=== PATIENT | female | born 2005 | race Two or more races ===

== ENCOUNTER 2024-11-21 09:29 | Emergency (ER) | payer MEDICAID ==
[~2024-11-21] VITALS: Ht 172.7 cm; Wt 172.2 kg
[2024-11-21] MEDS ORDERED: PANT40TA2 PO (09:50)
[2024-11-21] MEDS ORDERED: PRED20TA2 PO (09:50)
[2024-11-21] MEDS ORDERED: PRED10TA PO (09:50)
--- NOTE | 2024-11-21 09:50 | ED.PDOC ---
History of Present Illness HPI Comments 19-year-old female came to the ER stating that she has been having facial numbness for the past four days. She has not seen any provider for her condition. She denies any past medical surgical history. She states that she is able to do her routine work without any difficulty. Has good strength in all extremities. Denies any other symptoms. Chief Complaint: Face pain Time Seen by MD: 09:35 Primary Care Provider: EVITA Leonard Notes: Nurses Notes, Medications, Allergies Allergies: Coded Allergies: NO KNOWN ALLERGIES (Unverified , 05/02/16) Home Meds Active Scripts Nitrofurantoin Monohydrate Mac (Macrobid) 100 Mg Cap, 100 MG PO BID for 5 Days, #10 CAP Prov:GUI MAYO MD 11/21/24 Pantoprazole Sodium Sesquihydr (Protonix) 40 Mg Tab, 40 MG PO DAILY for 15 Days, #15 TAB Prov:GUI MAYO MD 11/21/24 Prednisone (Prednisone) 10 Mg Tab, 10 MG PO BS for 5 Days, #5 MG Prov:GUI MAYO MD 11/21/24 Prednisone (Prednisone) 20 Mg Tab, 20 MG PO DAILY for 7 Days, #7 MG Prov:GUI MAYO MD 11/21/24 Prednisone (Prednisone) 20 Mg Tab, 60 MG PO DAILY for 7 Days, #7 MG Prov:GUI MAYO MD 11/21/24 Information Source: Patient Mode of Arrival: Ambulatory Severity: Mild Timing: Days Duration: Since onset Past Medical History PAST MEDICAL HISTORY: Denies Surgical History: Tonsillectomy 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 History Family History Family History: Unknown Social History Smoker: Non-Smoker Alcohol: Denies ETOH Use Drugs: Denies Drug Use Lives In: Home Constitutional: denies: chills, diaphoresis, fatigue, fever, malaise, sweats, weakness, others EENTM: denies: blurred vision, double vision, ear bleeding, ear discharge, ear drainage, ear pain, ear ringing, eye pain, eye redness, hearing loss, mouth pain, mouth swelling, nasal discharge, nose bleeding, nose congestion, nose pain, photophobia, tearing, throat pain, throat swelling, voice changes, others Respiratory: denies: cough, hemoptysis, orthopnea, SOB at rest, shortness of breath, SOB with excertion, stridor, wheezing, others Cardiovascular: denies: chest pain, dizzy spells, diaphoresis, Dyspnea on exertion, edema, irregular heart beat, left arm pain, lightheadedness, palpitations, PND, syncope, others Gastrointestinal: denies: abdomen distended, abdominal pain, blood streaked bowels, constipated, diarrhea, dysphagia, difficulty swallowing, hematemesis, melena, nausea, poor appetite, poor fluid intake, rectal bleeding, rectal pain, vomiting, others Genitourinary: denies: abnormal vagina bleeding, burning, dyspareunia, dysuria, flank pain, frequency, hematuria, incontinence, pain, , vagina discharge, urgency, others Neurological: reports: left sided numbness; denies: dizziness, fainting, headache, left sided weakness, numbness, paresthesia, pre-existing deficit, right sided numbness, right sided weakness, seizure, speech problems, tingling, tremors, weakness, others Musculoskeletal: denies: back pain, gout, joint pain, joint swelling, muscle pain, muscle stiffness, neck pain, others Integumetry: denies: bruises, change in color, change in hair/nails, dryness, laceration, lesions, lumps, rash, wounds, others Allergic/Immunocompromised: denies: Difficulty Healing, Frequent Infections, Hives, Itching, others Hematologic/Lymphatic: denies: anemia, blood clots, easy bleeding, easy bruising, swollen glands, others Endocrine: denies: excessive hunger, excessive sweating, excessive thirst, excessive urination, flushing, intolerance to cold, intolerance to heat, unexplained weight gain, unexplained weight loss, others Psychiatric: denies: anxiety, bipolar disorder, depression, hopeless, panic disorder, schizophrenia, sleepless, suicidal, others Physical Exam General Appearance: Moderate Distress HEENT: Normal ENT Inspection, Pharynx Normal, TMs Normal Neck: Full Range of Motion, Non-Tender, Normal, Normal Inspection Respiratory: Chest Non-Tender, Lungs Clear, No Accessory Muscle Use, No Respiratory Distress, Normal Breath Sounds Cardiovascular: No Edema, No JVD, No Murmur, No Gallop, Normal Peripheral Pulses, Regular Rate/Rhythm Breast Exam: Deferred Gastrointestinal: No Organomegaly, Non Tender, No Pulsatile Mass, Normal Bowel Sounds, Soft Genitalia: Deferred Pelvic: Deferred Rectal: Deferred Extremities: No calf tenderness, Normal capillary refill, Normal inspection, Normal range of motion, Non-tender, No pedal edema Musculoskeletal : Apperance: Normal Neurologic: Facial Droop Cerebellar Function: Normal Reflexes: Normal Skin: Dry, Normal Color, Warm Peripheral Pulses: 3+ Radial (R), 3+ Radial (L) Lymphatic: No Adenopathy Was a procedure done? Was a procedure done?: No Differential Dx Considerations may include: Osorio's palsy TIA X-Ray, Labs, Meds, VS Vital Signs Date Time Temp Pulse Resp B/P (MAP) Pulse Ox O2 Delivery O2 Flow Rate FiO2 11/21/24 09:51 98.3 96 16 158/90 (112) 99 98.3 11/21/24 09:40 98.3 96 16 158/90 (112) 99 Lab Test 11/21/24 09:42 Range/Units Urine Color Yellow Yellow Urine Clarity Turbid H Clear Urine pH 5.5 5.0-9.0 Urine Specific [place] 1.028 1.001-1.035 Urine Protein Trace H Negative Urine Ketones Negative Negative Urine Blood Negative Negative /uL Urine Nitrite Negative Negative Urine Bilirubin Negative Negative Urine Urobilinogen Normal Negative mg/dL Urine Leukocyte Esterase Trace Negative /uL Urine RBC 5 0 - 4 /hpf Urine WBC 3 0 - 5 /hpf Urine Squamous Epithelial Cells Few <5 /hpf Urine Bacteria Few H None Seen /hpf Urine Mucus Few None Seen Urine Glucose Normal Normal mg/dL Patient alert. Facial numbness. Vitals stable. Answering all questions. Has good strength in all extremities. CT of the head reviewed does not show any acute changes. Osorio's palsy. UA shows UTI. Was given prescription of prednisone Macrobid antibiotic. Explained to the patient. Was told to follow up with her primary care physician. Was told to come back if there is any problem. Time of 1ST Reevaluation: 09:47 Reevaluation 1ST: Unchanged Patient Education/Counseling: Diagnosis, Treatment, Prognosis, Need For Follow Up Family Education/Counseling: No Family Present Departure 1 Departure Time of Disposition: 09:48 Impression: Primary Impression: Osorio's palsy Additional Impression: UTI (urinary tract infection) Qualified Codes: N30.00 - Acute cystitis without hematuria Disposition: HOME / SELF CARE / HOMELESS Condition: Good e-Prescriptions Nitrofurantoin Monohydrate Mac (Macrobid) 100 Mg Cap 100 MG PO BID for 5 Days, #10 CAP Prov: GUI MAYO MD 11/21/24 Pantoprazole Sodium Sesquihydr (Protonix) 40 Mg Tab 40 MG PO DAILY for 15 Days, #15 TAB Prov: GUI MAYO MD 11/21/24 Prednisone (Prednisone) 10 Mg Tab 10 MG PO BS for 5 Days, #5 MG Prov: GUI MAYO MD 11/21/24 Prednisone (Prednisone) 20 Mg Tab 20 MG PO DAILY for 7 Days, #7 MG Prov: GUI MAYO MD 11/21/24 Prednisone (Prednisone) 20 Mg Tab 60 MG PO DAILY for 7 Days, #7 MG Prov: GUI MAYO MD 11/21/24 Discharged With: Self Critical Care Note Critical Care Time?: No Stability Stability form required: No Heart Score Heart Score: Heart Score Response (Comments) Value History N/A 0 EKG N/A 0 Age N/A 0 Risk Factors N/A 0 Troponin N/A 0 Total 0 GUI MAYO MD Nov 21, 2024 09:50
[2024-11-21 09:51] VITALS: BP 158/90; PULSE 96; RESP 16; TEMP 98.3; O2SAT 99
--- NOTE | 2024-11-21 10:24 | DVH ---
EXAM: CT HEAD WITHOUT CONTRAST HISTORY: RIGHT SIDED FACIAL NUMBNESS COMPARISON: None TECHNIQUE: Axial images of the head were obtained and reformatted in coronal and sagittal planes. All CT scans at this medical facility are performed using dose modulation techniques as appropriate t o a performed exam including the following: Automated exposure control was utilized; adjustment of th e MA and/or KV according to patient size; and use of iterative reconstruction technique. CT Dose: CTDI volume is 70.11 mGy. Dose-length product is 1241.09 mGy*cm FINDINGS: There is no evidence of acute intracranial hemorrhage, mass, mass effect midline shift. There is no h ydrocephalus or extra-axial fluid collection. Thomson-white matter differentiation is maintained. The visualized paranasal sinuses and mastoid air cells are clear. The calvarium is intact. IMPRESSION: 1. No acute intracranial process. HS:Y
[2024-11-21 10:46] LABS: Urine Bacteria FEW /hpf (None Seen); Urine Blood Negative /uL (Negative); Urine Clarity Turbid (Clear); Urine Color Yellow (Yellow); Urine Mucus FEW (None Seen); Urine Protein, UAD TRACE (Negative); Urine Specific Gravity 1.028 (1.001-1.035); Urine Squamous Epithelial Cell FEW /hpf (<5); Urine Urobilinogen Normal (Negative); Urine WBC 3 /hpf (0 - 5); Urine pH 5.5 (5.0-9.0)
[2024-11-21] MEDS ORDERED: NITR-87 PO (11:11)
[2024-11-21] MEDS: predniSONE 20 MG TAB PO ONE (11:18)
[2024-11-21] MEDS: FAMOTIDINE 20 MG TAB PO ONE (11:18)
== END 2024-11-21 11:23 | disposition home or self-care (01) ==
LOC: ER 09:29
DX: G51.0 Bell's palsy (principal); N39.0 Urinary tract infection, site not specified; Z90.89 Acquired absence of other organs
CPT/HCPCS: 70450; 81001; 99284; J7512